=== PATIENT | female | born 2005 | race Caucasian/White ===

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

== ENCOUNTER 2024-10-27 21:06 | Emergency (ER) | payer OTHER ==
[~2024-10-27] VITALS: Ht 165.1 cm; Wt 152.0 kg
[~2024-10-27 21:06] MED LIST changes: +AMOXICILLIN500 MG PO; +ULTRAM50 MG PO
[2024-10-27] MEDS ORDERED: Pantoprazole Sodium 40 MG VIAL (Protonix) IV STA (22:07)
[2024-10-27] MEDS ORDERED: SODIUM CHLORIDE 0.9% 1,000 ML IV STA (22:07)
[2024-10-27] MEDS ORDERED: ALUM & MAG HYDROX-SIMETHICONE 30 ML PO ONE (22:10)
[2024-10-27] MEDS ORDERED: KETOROLAC TROMETHAMINE 30 MG/ML SDV IV ONE (22:10)
[2024-10-27] MEDS ORDERED: LIDOCAINE VISCOUS 2% 15 ML UDC PO ONE (22:10)
[2024-10-27] MEDS ORDERED: PROMETHAZINE HCL 25 MG/ML AMP IV ONE (22:10)
[2024-10-27 22:49] LABS: URINE BLOOD DIPSTICK Moderate (NEGATIVE); URINE GLUCOSE - DIPSTICK Negative (NEGATIVE); URINE KETONE Negative (NEGATIVE); URINE LEUK ESTERASE Trace (NEGATIVE); URINE NITRITE - DIPSTICK Negative (Negative); URINE PH 5.5 (4.5-8.0); URINE PROTEIN - DIPSTICK 100 mg/dL (NEG-TRACE); URINE SPECIFIC GRAVITY >=1.030
[2024-10-27 22:50] LABS: BASO% 0.3 % (0-3); EOS% 0.9 % (0-8); HEMOGLOBIN 11.7 g/dl (12.0-16.0); IMMATURE GRANULOCYTES 0.2 % (0.0-5.0); LYMPH% 15.2 % (15-41); MEAN CELL VOLUME 83.3 fL CALC (80.0-100.0); MEAN CORPUSCULAR HGB 26.4 pG CALC (26.0-32.0); MEAN CORPUSCULAR HGB CONC 31.6 g/dL CAL (32.0-36.0); MONO% 6.9 % (2-13); NEUT# 7.04 thou/uL (2.00-7.15); NEUT% 76.5 % (42-76); RED BLOOD COUNT 4.44 mill/uL (4.20-5.60); RED CELL DISTRI WIDTH 14.1 % (11.5-15.5); URINE COLOR Yellow
[2024-10-27 22:54] LABS: URINE BACTERIA FEW hpf; URINE HYALINE CAST FEW lpf (NONE-RARE); URINE MUCUS FEW hpf (NONE-FEW); URINE SQUAMOUS EPITHELIAL CELL FEW EPI/hpf (0-FEW)
[2024-10-27 23:05] LABS: CREATININE 0.7 mg/dL (0.5-1.0)
[2024-10-27 23:08] LABS: ALBUMIN 3.7 g/dL (3.2-5.0); BILIRUBIN, TOTAL 1.4 mg/dL (0.02-1.3); POTASSIUM 4.1 mmol/l (3.5-5.1); TOTAL PROTEIN 6.4 g/dL (6.3-8.2)
[2024-10-28] MEDS ORDERED: PEPCID40 MG PO (00:43)
[2024-10-28 00:49] VITALS: BP 136/87
== END 2024-10-28 00:50 | disposition home or self-care (01) ==
LOC: ED 21:06
PROVIDERS: Family Medicine
DX: K29.70 Gastritis, unspecified, without bleeding (principal); K29.80 Duodenitis without bleeding
CPT/HCPCS: J2470; J2550; Q9967

== ENCOUNTER 2024-11-18 20:25 | Emergency (ER) | payer OTHER ==
[~2024-11-18] VITALS: Ht 167.6 cm; Wt 154.0 kg
[~2024-11-18 20:25] MED LIST changes: +PEPCID40 MG PO
[2024-11-18 20:48] VITALS: BP 129/83
[2024-11-18 21:12] VITALS: BP 134/89
[2024-11-18] MEDS ORDERED: ESOMEPRAZOLE MA20 MG PO (21:22)
[2024-11-18] MEDS ORDERED: ALUM & MAG HYDROX-SIMETHICONE 30 ML PO ONE (21:35)
[2024-11-18 21:40] VITALS: BP 134/89
== END 2024-11-18 21:40 | disposition home or self-care (01) ==
LOC: ED 20:25
DX: R10.13 Epigastric pain (principal)

== ENCOUNTER 2024-11-19 14:45 | Emergency (ER) | payer OTHER ==
[~2024-11-19] VITALS: Ht 167.6 cm; Wt 144.2 kg
[~2024-11-19 14:45] MED LIST changes: +ESOMEPRAZOLE MA20 MG PO
[2024-11-19 15:41] VITALS: BP 146/79
[2024-11-19 16:25] LABS: BASO% 0.4 % (0-3); EOS% 0.6 % (0-8); HEMATOCRIT 38.7 % (37.0-47.0); HEMOGLOBIN 12.2 g/dl (12.0-16.0); IMMATURE GRANULOCYTES 0.2 % (0.0-5.0); LYMPH% 14.5 % (15-41); MEAN CELL VOLUME 81.6 fL CALC (80.0-100.0); MEAN CORPUSCULAR HGB 25.7 pG CALC (26.0-32.0); MEAN CORPUSCULAR HGB CONC 31.5 g/dL CAL (32.0-36.0); MONO% 7.7 % (2-13); NEUT# 7.84 thou/uL (2.00-7.15); NEUT% 76.6 % (42-76); RED BLOOD COUNT 4.74 mill/uL (4.20-5.60); RED CELL DISTRI WIDTH 13.7 % (11.5-15.5)
[2024-11-19 16:39] LABS: ALBUMIN 4.1 g/dL (3.2-5.0); ALKALINE PHOSPHATASE 214 u/l (38-126); ANION GAP 12 (6-22 (CALC)); BUN 11 mg/dL (7-17); BUN/CREATININE RATIO 14 (12-20 (CALC)); CARBON DIOXIDE 27 mmol/l (22-30); CHLORIDE 103 mmol/l (95-108); CREATININE 0.8 mg/dL (0.5-1.0); ESTIMATED GFR 108 ML/MIN (>=90 (CALC)); POTASSIUM 3.8 mmol/l (3.5-5.1); SGOT/AST 243 u/l (14-36); SODIUM 139 mmol/l (137-146); TOTAL PROTEIN 7.1 g/dL (6.3-8.2)
[2024-11-19 16:42] LABS: BILIRUBIN, TOTAL 3.1 mg/dL (0.02-1.3)
[2024-11-19] MEDS ORDERED: SODIUM CHLORIDE 0.9% 1,000 ML IV ONE (17:30)
[2024-11-19] MEDS ORDERED: ONDANSETRON HCl 4 MG/2 ML SDV IV ONE (17:30)
[2024-11-19] MEDS ORDERED: KETOROLAC TROMETHAMINE 15 MG/ML SDV IV ONE (17:30)
[2024-11-19] MEDS ORDERED: MORPHINE SULFATE 4 MG/ML VIAL IV ONE (17:40)
[2024-11-19] MEDS ORDERED: PIPERACILLIN Sodium-Tazobactam 3.375 GM in SODIUM CHLORIDE 0.9% 100 ML IV ONE (18:00)
== END 2024-11-19 20:20 ==
LOC: ED 14:45
PROVIDERS: Family Medicine
DX: K80.00 Calculus of gallbladder with acute cholecystitis without obstruction (principal); E66.9 Obesity, unspecified; F10.10 Alcohol abuse, uncomplicated; F32.9 Major depressive disorder, single episode, unspecified; Z72.0 Tobacco use; Z20.822 Contact with and (suspected) exposure to COVID-19
CPT/HCPCS: J1885; J2405; J2543

== ENCOUNTER 2025-01-22 17:21 | Emergency (ER) | payer OTHER ==
[~2025-01-22] VITALS: Ht 167.6 cm; Wt 150.0 kg
[2025-01-22 17:53] VITALS: BP 165/102
[2025-01-22 18:00] VITALS: BP 173/105
[2025-01-22 18:30] VITALS: BP 144/88
[2025-01-22] MEDS ORDERED: TRAMADOL HYDROC50 M1 PO (18:36)
[2025-01-22 18:43] VITALS: BP 144/88
== END 2025-01-22 18:49 | disposition home or self-care (01) ==
LOC: ED 17:21
DX: K08.89 Other specified disorders of teeth and supporting structures (principal); E66.9 Obesity, unspecified; F10.10 Alcohol abuse, uncomplicated; F32.9 Major depressive disorder, single episode, unspecified; Z72.0 Tobacco use